=== PATIENT | female | born 1965 | race Caucasian/White ===

== ENCOUNTER 2017-12-11 11:32 | Emergency (ER) | payer OTHER ==
[2017-12-11] MEDS: ALBUTEROL 0.083% (NEB) 2.5 MG/3 ML AMP NEB (12:16)
[2017-12-11] MEDS: IPRATROPIUM (NEB) 0.5 MG/2.5 ML AMP NEB (12:16)
== END 2017-12-11 12:50 | disposition left against medical advice (07) ==
LOC: FTE 12:50
DX: J20.9 Acute bronchitis, unspecified (principal)
CPT/HCPCS: 94664; 99284-25

== ENCOUNTER 2018-01-01 11:18 | Emergency (ER) | payer OTHER ==
[2018-01-01] MEDS ORDERED: ALBUTEROL 0.083% (NEB) 2.5 MG/3 ML AMP NEB (11:33)
[2018-01-01] MEDS ORDERED: IPRATROPIUM (NEB) 0.5 MG/2.5 ML AMP NEB (11:33)
[2018-01-01] MEDS ORDERED: DEXAMETHASONE 10 MG/ML 1 ML INJ IM (11:33)
[2018-01-01] MEDS: DEXAMETHASONE 10 MG/ML 1 ML INJ IM (12:03)
[2018-01-01] MEDS: ALBUTEROL 0.083% (NEB) 2.5 MG/3 ML AMP NEB (12:12)
[2018-01-01] MEDS: IPRATROPIUM (NEB) 0.5 MG/2.5 ML AMP NEB ×2 (12:13→14:38)
[2018-01-01] MEDS: ALBUTEROL 0.5% (NEB) 2.5 MG/0.5 ML AMP INH (13:18)
[2018-01-01] MEDS: LEVALBUTEROL (NEB) 1.25 MG/0.5 ML AMP INH (14:38)
== END 2018-01-01 15:32 | disposition home or self-care (01) ==
LOC: FTE 11:18
DX: J20.9 Acute bronchitis, unspecified (principal)
CPT/HCPCS: 71045; 93005; 94644; 94645; 94664; 96372; 99285-25

== ENCOUNTER 2018-01-24 18:00 | Emergency (ER) | payer OTHER ==
[2018-01-24] MEDS: IPRATROPIUM (NEB) 0.5 MG/2.5 ML AMP HHN (19:32)
[2018-01-24] MEDS: ALBUTEROL 0.083% (NEB) 2.5 MG/3 ML AMP NEB (19:32)
[2018-01-24] MEDS: ALBUTEROL 0.5% (NEB) 2.5 MG/0.5 ML AMP INH (20:36)
[2018-01-24] MEDS: ALBUTEROL 0.5% (NEB) 2.5 MG/0.5 ML AMP NEB (21:51)
== END 2018-01-24 23:04 | disposition home or self-care (01) ==
LOC: FTE 18:00
DX: J45.901 Unspecified asthma with (acute) exacerbation (principal)
CPT/HCPCS: 71045; 94640; 94644; 94645; 94664; 99285-25